=== PATIENT | male | born 1995 | race Asian ===

== ENCOUNTER 2017-09-02 19:06 | Emergency (ER) | payer OTHER ==
[2017-09-02 19:18] VITALS: BP 126/78
--- NOTE | 2017-09-02 20:28 | RAD ---
Indication: RIGHT fifth finger pain following injury. Dislocation. Comparison: No relevant prior exams available on the [facility] PACS for comparison. Technique: 3 views RIGHT fifth finger Report: The base of the middle phalanx is dislocated dorsal and perched at the dorsal margin of the head of the proximal phalanx. Approximate one half bone width ulnar displacement. No fracture evident. Soft tissue swelling throughout. IMPRESSION: Dorsally dislocated proximal interphalangeal joint.
--- NOTE | 2017-09-02 22:04 | RAD ---
Indication: Post reduction RIGHT fifth finger dislocation. Comparison: Prereduction exam of the same date. Technique: 3 views RIGHT fifth finger. REPORT AND IMPRESSION: Restored alignment at the proximal interphalangeal joint post reduction. No fracture evident. Fusiform soft tissue swelling.
--- NOTE | 2017-09-02 22:45 | ED ---
Upper Extremity Pain - HPI Summary HPI Summary: Patient presents to the ED with CC of finger dislocation after hitting the tip of the finger during volleyball. Endorses immediate pain as 5/10 which has decreased in severity since he arrived to the ED. There is deformity noted. Denies other pain or injuries. Denies numbness, tingling, color or temperature changes. Otherwise healthy. Denies medications. Ice with relief. - History of Current Complaint Chief Complaint: EDGeneral Stated Complaint: RIGHT FINGER INJURY Time Seen by Provider: 09/02/17 19:58 Hx Obtained From: Patient Mechanism Of Injury: Blunt Trauma Onset/Duration: Started Hours Ago Timing: Constant Severity Initially: Mild Severity Currently: Mild Pain Location: Finger Character: Aching Aggravating Factor(s): Nothing Alleviating Factor(s): Rest, Ice Associated Signs & Symptoms: Positive: Negative Related History: Dominant Hand Right - Risk Factors Non-Orthopedic Risk Factor: Negative DVT Risk Factors: Negative Septic Arthritis Risk Factor: Negative Compartment Syndrome Risk Factors: Pain - Allergies/Home Medications Allergies/Adverse Reactions: Allergies Allergy/AdvReac Type Severity Reaction Status Date / Time No Known Allergies Allergy Verified 09/02/17 19:18 PMH/Surg Hx/FS Hx/Imm Hx Previously Healthy: Yes - Immunization History Hx Pertussis Vaccination: No Immunizations Up to Date: Unable to Obtain/Confirm Infectious Disease History: No Infectious Disease History: Denies: Traveled Outside the [place] in Last 30 Days - Social History Occupation: Unemployed, Student Lives: Dormitory/Roommates Alcohol Use: Occasionally Hx Substance Use: No Substance Use Type: Reports: None Smoking Status (MU): Never Smoked Tobacco Review of Systems Constitutional: Negative Negative: Fever, Chills, Fatigue Eyes: Negative Cardiovascular: Negative Respiratory: Negative Positive: no symptoms reported, see HPI Positive: Arthralgia Skin: Negative Neurological: Negative All Other Systems Reviewed And Are Negative: Yes Physical Exam Triage Information Reviewed: Yes Vital Signs On Initial Exam: Initial Vitals Temp Pulse Resp BP Pulse Ox 98.1 F 90 18 126/78 96 09/02/17 19:13 09/02/17 19:13 09/02/17 19:13 09/02/17 19:13 09/02/17 19:13 Vital Signs Reviewed: Yes Appearance: Positive: Well-Appearing, Well-Nourished Skin: Positive: Warm, Skin Color Reflects Adequate Perfusion Head/Face: Positive: Normal Head/Face Inspection Eyes: Positive: EOMI, PRABHJOT, Conjunctiva Clear Neck: Positive: Supple, No Lymphadenopathy Respiratory/Lung Sounds: Positive: Clear to Auscultation, Breath Sounds Present Cardiovascular: Positive: RRR, Pulses are Symmetrical in both Upper and Lower Extremities Musculoskeletal: Positive: Pain @ - right little finger. Neurological: Positive: Sensory/Motor Intact, Alert, Oriented to Person Place, Time, Speech Normal Psychiatric: Positive: Normal, Affect/Mood Appropriate - Zach Coma Scale Best Verbal Response: 5 - Oriented Coma Scale Total: 15 Diagnostics - Vital Signs Vital Signs Temp Pulse Resp BP Pulse Ox 09/02/17 19:13 98.1 F 90 18 126/78 96 - Laboratory Lab Statement: Any lab studies that have been ordered have been reviewed, and results considered in the medical decision making process. Course/Dx - Course Course Of Treatment: Evaluated for dislocation of the right little finger. Report: The base of the middle phalanx is dislocated dorsal and perched at the dorsal. margin of the head of the proximal phalanx. Approximate one half bone width ulnar. displacement. No fracture evident. Soft tissue swelling throughout. Pulses +2 bilaterally and cap refill < 2 sec. Povidine to the base of the MCP. 2 cc's placed at the base with digital block. Tracted upwards with success. Reduction : REPORT AND IMPRESSION: Restored alignment at the proximal interphalangeal joint post. reduction. No fracture evident. Fusiform soft tissue swelling. Splint applied. Encouraged ibuprofen. He states he will only follow up with ortho if symptoms worsen. He will keep splint on for 5 days then noemi tape for 5 days. IMPRESSION: Dorsally dislocated proximal interphalangeal joint. - Diagnoses Provider Diagnoses: Dislocation, finger Discharge - Discharge Plan Condition: Stable Disposition: HOME Patient Education Materials: Finger Dislocation (ED) Referrals: No Primary Care Phys,NOPCP [Primary Care Provider] - Leyla Alvarado MD [Medical Doctor] - Additional Instructions: Follow up with ortho in 7-10 days Ibuprofen 600mg three times daily Ice Keep the finger splinted for 3-5 days Then, noemi tape it next to the fourth finger for another 3-5 days
== END 2017-09-02 22:06 | disposition home or self-care (01) ==
LOC: ED 19:06
DX: S63.296A Dislocation of distal interphalangeal joint of right little finger, initial encounter (principal); W21.06XA Struck by volleyball, initial encounter; Y93.68 Activity, volleyball (beach) (court); Y92.9 Unspecified place or not applicable
CPT/HCPCS: 26770; 73140; 99282

== ENCOUNTER 2018-11-10 15:38 | Emergency (ER) | payer OTHER ==
[2018-11-10 15:48] VITALS: BP 126/72
--- NOTE | 2018-11-10 17:54 | ED ---
Laceration/Wound HPI - HPI Summary HPI Summary: 23 year old male presents with right knee laceration today. He states that he cut it on his knee. No active bleeding noted. Immunizations up-to-date. No numbness or tingling. Able to ambulate without difficulty. denies any other injury. immunizations up to date. - History of Current Complaint Stated Complaint: LAC ON RIGHT KNEE Time Seen by Provider: 11/10/18 17:28 Pain Intensity: 2 - Allergy/Home Medications Allergies/Adverse Reactions: Allergies Allergy/AdvReac Type Severity Reaction Status Date / Time No Known Allergies Allergy Verified 11/10/18 15:48 PMH/Surg Hx/FS Hx/Imm Hx Endocrine/Hematology History: Denies: Hx Anticoagulant Therapy Cardiovascular History: Denies: Hx Myocardial Infarction Infectious Disease History: No Infectious Disease History: Denies: Traveled Outside the [place] in Last 30 Days - Family History Known Family History: Positive: Non-Contributory - Social History Alcohol Use: Occasionally Hx Substance Use: No Substance Use Type: Reports: None Smoking Status (MU): Never Smoked Tobacco Review of Systems Negative: Fever Negative: Chest Pain Negative: Shortness Of Breath Positive: Other - left knee laceration All Other Systems Reviewed And Are Negative: Yes Physical Exam Triage Information Reviewed: Yes Vital Signs On Initial Exam: Initial Vitals Temp Pulse Resp BP Pulse Ox 98.3 F 68 16 126/72 95 11/10/18 15:44 11/10/18 15:44 11/10/18 15:44 11/10/18 15:44 11/10/18 15:44 Vital Signs Reviewed: Yes Appearance: Positive: Well-Appearing Skin: Positive: Warm, Dry, Other - 2 1/2cm by 1/2cm by 1/4cm laceration to right lateral knee, no tendon involvement seen Head/Face: Positive: Normal Head/Face Inspection Eyes: Positive: Normal, Conjunctiva Clear ENT: Positive: Pharynx normal Respiratory/Lung Sounds: Positive: Clear to Auscultation, Breath Sounds Present Cardiovascular: Positive: Normal, RRR Musculoskeletal: Positive: Strength/ROM Intact - right knee, Other - good pulses , sensation grossly intact Neurological: Positive: Normal Psychiatric: Positive: Normal Procedures - Laceration/Wound Repair 1 Location: Other - right knee Description: Linear Anesthesia: Local, 1.0%, Epi Length, Depth and Shape: 2 1/2cm by 1/2cm by 1/4cm Irrigated w/ Saline (ccs): 500 Closure: Single Layer Suture Type: Prolene Number of Sutures: 3 Sterile Dressing Applied?: No - telfa Diagnostics - Vital Signs Vital Signs Temp Pulse Resp BP Pulse Ox 11/10/18 15:44 98.3 F 68 16 126/72 95 - Laboratory Lab Statement: Any lab studies that have been ordered have been reviewed, and results considered in the medical decision making process. Laceration Repair Course/Dx - Course Course Of Treatment: 23 year old male presents with right knee laceration today. He states that he cut it on his knee. No active bleeding noted. Immunizations up-to-date. No numbness or tingling. Able to ambulate without difficulty. denies any other injury. immunizations up to date. on exam has 2 1/ 2cm by 1/2cm laceration to right knee. cleaned area and placed 3 sutures. told to keep area clean and dry. patient understand and agrees with plan. - Differential Dx Differental Diagnoses: Abrasion, Avulsion, Laceration - Clinical Impression Provider Diagnoses: Laceration of right knee Discharge - Sign-Out/Discharge Documenting (check all that apply): Patient Departure Patient Received Moderate/Deep Sedation with Procedure: No - Discharge Plan Condition: Good Disposition: HOME Patient Education Materials: Care For Your Stitches (ED) Referrals: No Primary Care Phys,NOPCP [Primary Care Provider] - Additional Instructions: Take Tylenol or ibuprofen for pain every 6 hours as needed Keep area clean and dry for 24 hours Return to ED or health center in 8-10 days to have sutures removed Return to ED if develop signs of infection such as fever, spreading redness, or pus. - Billing Disposition and Condition Condition: GOOD Disposition: Home
== END 2018-11-10 18:03 | disposition home or self-care (01) ==
LOC: ED 15:38
DX: S81.011A Laceration without foreign body, right knee, initial encounter (principal); W26.9XXA Contact with unspecified sharp object(s), initial encounter; Y92.9 Unspecified place or not applicable
CPT/HCPCS: 12001; 99282